=== PATIENT | female | born 1985 | race Caucasian/White ===

== ENCOUNTER 2018-05-08 12:08 | Emergency (ER) | payer MEDICAID ==
[~2018-05-08] VITALS: Ht 162.6 cm; Wt 73.0 kg
[2018-05-08 14:49] LABS: BASOPHILS % 0.3 % (0.0-2.0); HEMATOCRIT. 36.4 % (36.0-48.0); HEMOGLOBIN. 12.3 g/dL (12.0-16.0); LYMPHOCYTES % 3.5 % (20.0-50.0); MEAN CORPUSCULAR VOLUME 85.9 fL (81.0-99.0); MEAN PLATELET VOLUME 7.4 fl (7.4-10.4); MONOCYTES % 5.1 % (2.0-8.0); NEUTROPHILS % 91.1 % (40.0-76.0); PLATELET 319 x1000/uL (130-400); RED BLOOD CELL COUNT 4.24 mill/uL (4.2-5.4); RED CELL DISTRIBUTION WIDTH 13.5 % (11.6-14.6)
[2018-05-08 14:56] LABS: CHLORIDE 102 mEq/L (98-107)
[2018-05-08] MEDS ORDERED: ONDANSETRON 4MG ODT PO ONE (15:15)
[2018-05-08] MEDS ORDERED: ACETAMINOPHEN 325MG TABLET PO ONE (15:15)
[2018-05-08 15:23] LABS: B-HCG QUANTITATIVE 29037 mIU/mL (<3)
[2018-05-08 15:51] LABS: CLARITY URINE TURBID (CLEAR); COLOR URINE YELLOW (YELLOW); KETONES URINE 2+ (NEGATIVE); LEUKOCYTE ESTERASE URINE 3+ (NEGATIVE); NITRITE URINE POSITIVE (NEGATIVE); OCCULT BLOOD URINE 2+ (NEGATIVE); PH URINE 5.5 (4.5-8.0); PROTEIN URINE 2+ (NEGATIVE); SPECIFIC GRAVITY URINE 1.019 (1.005-1.030)
[2018-05-08 16:52] VITALS: BP 114/60
== END 2018-05-08 16:55 | disposition home or self-care (01) ==
LOC: ER 12:08
DX: O23.42 Unspecified infection of urinary tract in pregnancy, second trimester (principal); O12.12 Gestational proteinuria, second trimester; O26.892 Other specified pregnancy related conditions, second trimester; D72.829 Elevated white blood cell count, unspecified; Z3A.15 15 weeks gestation of pregnancy
CPT/HCPCS: 36415; 76801; 80053; 81003; 83690; 84702; 85025; 87077; 87086; 87186; 99285; Q0162